=== PATIENT | female | born 1980 | race Caucasian/White ===

== ENCOUNTER → 2024-11-14 | Outpatient (CLI) | payer BC ==
--- NOTE | 2024-11-24 21:05 | CE ---
EVENT MONITOR STUDY: Event monitor. INDICATION: Rule out cardiac arrhythmia. The patient was monitored for 7 days. The baseline rhythm appeared to be sinus mechanism. PACs were not noted. PVC was noted, but it was in less than 1%. No evidence of atrial fibrillation or atrial flutter, and no significant sinus pause or sinus arrest. CONCLUSION: 1. Sinus rhythm as a baseline mechanism. 2. PACs were not noted during the study. 3. PVC was noted and it was rare. 4. No evidence of atrial fibrillation or atrial flutter. 5. No ventricular tachycardia noted. MMODL / IJN: [id number] / MTDD
== END | disposition home or self-care (01) ==
LOC: RADECHMAIN 07:55
PROVIDERS: ATTEND Family Medicine
DX: R00.2 Palpitations (principal); R00.0 Tachycardia, unspecified
CPT/HCPCS: 93270

== ENCOUNTER 2024-11-28 09:22 | Observation (INO) | payer BC, OTHER ==
[2024-11-28 09:49] LABS: Basophils % (A) 0 %; Eosinophils # (A) 0.3 k/uL (0-0.7); Eosinophils % (A) 2 %; HCT 43.3 % (34.0-46.0); HGB 13.9 gm/dL (11.4-16.0); Lymphocytes # (A) 2.6 k/uL (1.0-4.8); Lymphocytes % (A) 25 %; MCH 26.7 pg (25.0-35.0); MCHC 32.1 g/dL (31.0-37.0); MCV 83.1 fL (80.0-100.0); Mean Platelet Volume 7.9; Monocytes # (A) 0.3 k/uL (0-1.0); Monocytes % (A) 3 %; Neutrophils # (A) 7.2 k/uL (1.3-7.7); Neutrophils % (A) 69 %; Platelet Count 354 k/uL (150-450); RBC 5.21 m/uL (3.80-5.40); RDW 14.1 % (11.5-15.5); WBC 10.4 k/uL (3.8-10.6)
[2024-11-28 09:57] LABS: INR 0.9 (<1.2); Partial Thromboplastin Time 24.4 sec (22.0-30.0); Prothrombin Time 10.5 sec (10.0-12.5)
[2024-11-28 10:01] LABS: ALT 18 U/L (4-34); AST 19 U/L (14-36); African American GFR (CKD) >90 (>60 ml/min/1.73 sqM); Albumin 4.2 g/dL (3.5-5.0); Alkaline Phosphatase 103 U/L (38-126); Anion Gap 11 mmol/L; Blood Urea Nitrogen 19 mg/dL (7-17); Calcium 9.1 mg/dL (8.4-10.2); Carbon Dioxide 22 mmol/L (22-30); Chloride 107 mmol/L (98-107); Glucose 113 mg/dL (74-99); Magnesium 1.8 mg/dL (1.6-2.3); Non-African American GFR(CKD) >90 (>60 ml/min/1.73 sqM); Potassium 4.4 mmol/L (3.5-5.1); Sodium 140 mmol/L (137-145); Total Bilirubin 0.4 mg/dL (0.2-1.3); Total Protein 7.3 g/dL (6.3-8.2)
--- NOTE | 2024-11-28 10:07 | XR ---
EXAMINATION TYPE: XR chest 2V DATE OF EXAM: 11/28/2024 9:56 AM COMPARISON: None. CLINICAL INDICATION: Female, 44 years old with history of dysrhythmia, TECHNIQUE: Frontal and lateral views of the chest are obtained. FINDINGS: There is no focal air space opacity, pleural effusion, or pneumothorax seen. The cardiac silhouette size is within normal limits. Overlying EKG leads are seen. The osseous structures are in tact. IMPRESSION: No acute process. [facility], , 11/28/2024 10:05 AM
--- NOTE | 2024-11-28 10:15 | ED ---
Arrhythmia/Palpitations HPI - General Chief Complaint: Arrhythmia/Palpitations Stated Complaint: elevated heartrate Time Seen by Provider: 11/28/24 10:16 Source: patient, RN notes reviewed, old records reviewed Mode of arrival: ambulatory Limitations: no limitations - History of Present Illness Initial Comments: 44-year-old female presented to the ER for evaluation of palpitations. She states this has been going on for the past couple of months and she has been evaluated outpatient. Patient recently wore a Holter monitor from [facility] to [facility] but states she has not received results of this yet. Patient states last night she was feeling a thumping sensation in her chest. She denies actual chest pain. Patient states she checked her Fitbit and it was found to be in atrial fibrillation with RVR heart rates ranging from 60s to 180s. She has no history of atrial fibrillation denies medications or blood thinner use. Patient reports associated shortness of breath and intermittent lightheadedness/dizziness. She denies home O2 use, peripheral edema, history of blood clots or other complaints. - Related Data Home Medications Medication Instructions Recorded Confirmed Cholecalciferol (Vitamin D3) 50 mcg PO DAILY 11/28/24 11/28/24 [Vitamin D3 (50 Mcg = 2000 Iu)] Escitalopram Oxalate [Lexapro] 10 mg PO DAILY 11/28/24 11/28/24 Levothyroxine Sodium [Synthroid] 25 mcg PO DAILY 11/28/24 11/28/24 Magnesium Glycinate 200 mg PO DAILY 11/28/24 11/28/24 Methylphenidate HCl [Concerta] 54 mg PO DAILY 11/28/24 11/28/24 Allergies Allergy/AdvReac Type Severity Reaction Status Date / Time Penicillins Allergy Rash/Hives Verified 11/28/24 10:40 Review of Systems ROS Statement: Those systems with pertinent positive or pertinent negative responses have been documented in the HPI. ROS Other: All systems not noted in ROS Statement are negative. Past Medical History Past Medical History: No Reported History History of Any Multi-Drug Resistant Organisms: None Reported Past Surgical History: Orthopedic Surgery Past Psychological History: Depression Smoking Status: Never smoker Past Alcohol Use History: None Reported Past Drug Use History: None Reported General Exam Limitations: no limitations General appearance: alert, in no apparent distress Respiratory exam: Present: normal lung sounds bilaterally. Absent: respiratory distress, wheezes, rales, rhonchi, stridor Cardiovascular Exam: Present: tachycardia, irregular rhythm, normal heart sounds Extremities exam: Present: normal inspection, full ROM, normal capillary refill. Absent: tenderness, pedal edema, joint swelling, calf tenderness Neurological exam: Present: alert, oriented X3, CN II-XII intact Skin exam: Present: warm, dry, intact, normal color. Absent: rash Course Vital Signs 11/28/24 11/28/24 11/28/24 09:26 10:16 11:04 Temperature 97.4 F L Pulse Rate 68 124 H 98 Respiratory 16 20 20 Rate Blood Pressure 115/71 113/66 O2 Sat by Pulse 100 99 Oximetry 11/28/24 12:30 Temperature Pulse Rate 99 Respiratory 18 Rate Blood Pressure 111/67 O2 Sat by Pulse 97 Oximetry - Reevaluation(s) Reevaluation #1: 11/28/24 11:[address] Stock for admission. EKG Findings - EKG Comments: EKG Findings:: EKG taken at 9: 34 showing atrial fibrillation with RVR. Ventricular rate 116, QRS duration 85, QT/QTc 282/351. Medical Decision Making - Medical Decision Making Was pt. sent in by a medical professional or institution (, PA, SPORTS INSTRUCTOR, urgent care, hospital, or retirement...) When possible be specific @ -No Did you speak to anyone other than the patient for history (EMS, parent, family, police, friend...)? What history was obtained from this source @ -No Did you review nursing and triage notes (agree or disagree)? Why? @ -I reviewed and agree with nursing and triage notes Were old charts reviewed (outside hosp., previous admission, EMS record, old EKG, old radiological studies, urgent care reports/EKG's, retirement records)? Report findings @ -No old charts were reviewed Differential Diagnosis (chest pain, altered mental status, abdominal pain women, abdominal pain men, vaginal bleeding, weakness, fever, dyspnea, syncope, headache, dizziness, GI bleed, back pain, seizure, CVA, palpatations, mental health, musculoskeletal)? @ -Differential Palpitations: Ventricular arrhythmias, atrial arrhythmias, myocardial infarction, anemia, thyrotoxicosis, electrolyte imbalance, hypokalemia, pulmonary embolism, pulmonary disease, drugs, alcohol, anxiety, stress.... This is not meant to be an all-inclusive list. EKG interpreted by me (3pts min.). @ -As above X-rays interpreted by me (1pt min.). @ -CXR interpreted me negative for acute cardiopulmonary process. CT interpreted by me (1pt min.). @ -None done U/S interpreted by me (1pt. min.). @ -None done What testing was considered but not performed or refused? (CT, X-rays, U/S, labs)? Why? @ -None What meds were considered but not given or refused? Why? @ -None Did you discuss the management of the patient with other professionals (professionals i.e. , PA, SPORTS INSTRUCTOR, lab, RT, psych nurse, social science manager, family medicine chair, teacher, supervisor dog license officer, behavioral health case manager)? Give summary @ -Yes, case discussed with Dr. Stock for admission. Was smoking cessation discussed for >3mins.? @ -No Was critical care preformed (if so, how long)? @ -Yes, 31 minutes Were there social determinants of health that impacted care today? How? (Homelessness, low income, unemployed, alcoholism, drug addiction, transportati on, low edu. Level, literacy, decrease access to med. care, [facility], rehab)? @ -No Was there de-escalation of care discussed even if they declined (Discuss DNR or withdrawal of care, Hospice)? DNR status @ -No What co-morbidities impacted this encounter? (DM, HTN, Smoking, COPD, CAD, Cancer, CVA, ARF, Chemo, Hep., AIDS, mental health diagnosis, sleep apnea, morbid obesity)? @ -Hypothyroid Was patient admitted / discharged? Hospital course, mention meds given and route, prescriptions, significant lab abnormalities, going to OR and other pertinent info. @ -Admitted. 44-year-old female presented to the ER for evaluation of palpitations. Upon rooming, history and physical exam completed. Patient is tachycardic ranging from 120s to 140s vitals otherwise stable. Patient no signs acute distress nontoxic-appearing. EKG showing atrial fibrillation with rapid ventricular response ventricular rate 116 bm. Laboratory studies obtained including cardiac workup. Troponin less than 0.012. D-dimer 0.42. TSH 4.710. Free T4 pending at time of admission. Chest x-ray negative. Given new onset atrial fibrillation patient started on low-dose heparin and Cardizem at 5 mg/h. Admission considered and discussed with Dr. Stock for treatment of new onset atrial fibrillation and cardiology consultation. Upon reevaluation, patient resting comfortably on stretcher no signs of acute distress. Heart rates ranging from 90s to 110s. Vital stable. Patient agreeable for admission. Case discussed with the attending of Dr. Sanchez. Undiagnosed new problem with uncertain prognosis? @ -No Drug Therapy requiring intensive monitoring for toxicity (Heparin, Nitro, Insulin, Cardizem)? @ -Yes, heparin and Cardizem Were any procedures done? @ -No Diagnosis/symptom? @ -New onset atrial fibrillation Acute, or Chronic, or Acute on Chronic? @ -Acute Uncomplicated (without systemic symptoms) or Complicated (systemic symptoms)? @ -Complicated Side effects of treatment? @ -No Exacerbation, Progression, or Severe Exacerbation? @ -No Poses a threat to life or bodily function? How? (Chest pain, USA, AR, pneumonia, PE, COPD, DKA, ARF, appy, cholecystitis, CVA, Diverticulitis, Homicidal, Suicidal, threat to staff... and all critical care pts) @ -Yes, atrial fibrillation with rapid ventricular response can lead to blood clot formation. Blood clots can cause strokes and/or pulmonary embolisms which can be life-threatening. - Lab Data Result diagrams: 11/28/24 09:44 11/28/24 09:44 Lab Results 11/28/24 11/28/24 11/28/24 Range/Units 09:44 09:44 09:44 WBC 10.4 (3.8-10.6) k/uL RBC 5.21 (3.80-5.40) m/uL Hgb 13.9 (11.4-16.0) gm/dL Hct 43.3 (34.0-46.0) % MCV 83.1 (80.0-100.0) fL MCH 26.7 (25.0-35.0) pg MCHC 32.1 (31.0-37.0) g/dL RDW 14.1 (11.5-15.5) % Plt Count 354 (150-450) k/uL MPV 7.9 Neutrophils % 69 % Lymphocytes % 25 % Monocytes % 3 % Eosinophils % 2 % Basophils % 0 % Neutrophils # 7.2 (1.3-7.7) k/uL Lymphocytes # 2.6 (1.0-4.8) k/uL Monocytes # 0.3 (0-1.0) k/uL Eosinophils # 0.3 (0-0.7) k/uL Basophils # 0.0 (0-0.2) k/uL PT 10.5 (10.0-12.5) sec INR 0.9 (<1.2) APTT 24.4 (22.0-30.0) sec D-Dimer (<0.60) mg/L FEU Sodium 140 (137-145) mmol/L Potassium 4.4 (3.5-5.1) mmol/L Chloride 107 (98-107) mmol/L Carbon Dioxide 22 (22-30) mmol/L Anion Gap 11 mmol/L BUN 19 H (7-17) mg/dL Creatinine 0.65 (0.52-1.04) mg/dL Est GFR (CKD-EPI)AfAm >90 (>60 ml/min/1.73 sqM) Est GFR (CKD-EPI)NonAf >90 (>60 ml/min/1.73 sqM) Glucose 113 H (74-99) mg/dL Calcium 9.1 (8.4-10.2) mg/dL Magnesium 1.8 (1.6-2.3) mg/dL Total Bilirubin 0.4 (0.2-1.3) mg/dL AST 19 (14-36) U/L ALT 18 (4-34) U/L Alkaline Phosphatase 103 (38-126) U/L Troponin I (0.000-0.034) ng/mL Total Protein 7.3 (6.3-8.2) g/dL Albumin 4.2 (3.5-5.0) g/dL TSH (0.465-4.680) mIU/L Free T4 (0.78-2.19) ng/dL 11/28/24 11/28/24 11/28/24 Range/Units 09:44 09:44 09:44 WBC (3.8-10.6) k/uL RBC (3.80-5.40) m/uL Hgb (11.4-16.0) gm/dL Hct (34.0-46.0) % MCV (80.0-100.0) fL MCH (25.0-35.0) pg MCHC (31.0-37.0) g/dL RDW (11.5-15.5) % Plt Count (150-450) k/uL MPV Neutrophils % % Lymphocytes % % Monocytes % % Eosinophils % % Basophils % % Neutrophils # (1.3-7.7) k/uL Lymphocytes # (1.0-4.8) k/uL Monocytes # (0-1.0) k/uL Eosinophils # (0-0.7) k/uL Basophils # (0-0.2) k/uL PT (10.0-12.5) sec INR (<1.2) APTT (22.0-30.0) sec D-Dimer 0.42 (<0.60) mg/L FEU Sodium (137-145) mmol/L Potassium (3.5-5.1) mmol/L Chloride (98-107) mmol/L Carbon Dioxide (22-30) mmol/L Anion Gap mmol/L BUN (7-17) mg/dL Creatinine (0.52-1.04) mg/dL Est GFR (CKD-EPI)AfAm (>60 ml/min/1.73 sqM) Est GFR (CKD-EPI)NonAf (>60 ml/min/1.73 sqM) Glucose (74-99) mg/dL Calcium (8.4-10.2) mg/dL Magnesium (1.6-2.3) mg/dL Total Bilirubin (0.2-1.3) mg/dL AST (14-36) U/L ALT (4-34) U/L Alkaline Phosphatase (38-126) U/L Troponin I <0.012 (0.000-0.034) ng/mL Total Protein (6.3-8.2) g/dL Albumin (3.5-5.0) g/dL TSH 4.710 H (0.465-4.680) mIU/L Free T4 0.72 L (0.78-2.19) ng/dL - Radiology Data Radiology results: report reviewed, image reviewed Disposition Clinical Impression: New onset atrial fibrillation Disposition: ADMITTED IP TO THIS [facility] Condition: Stable Time of Disposition: 11:07
[2024-11-28] MEDS: SODIUM CHLORIDE 0.9% 1,000 ML IV STA (10:23)
[2024-11-28] MEDS: DILTIAZEM 125 MG in SODIUM CHLORIDE 0.9% 100 ML IV SCH (10:26)
[2024-11-28] MEDS ORDERED: ACETAMINOPHEN TAB 325 MG TAB PO PRN (11:06)
[2024-11-28] MEDS ORDERED: NALOXONE 0.4 MG/ML 1 ML VIAL IV PRN (11:06)
[2024-11-28] MEDS ORDERED: ONDANSETRON 4 MG/2 ML VIAL IVP PRN (11:06)
[2024-11-28] MEDS: HEPARIN SODIUM 1,000 UN/ML (10ML VL) IV ONE (11:11)
[2024-11-28] MEDS: HEPARIN SOD,PORK IN 0.45% NACL 25,000 UNIT in 0.45% NACL 1 250ML.BAG IV SCH (11:12)
[2024-11-28] MEDS: SODIUM CHLORIDE 0.9% 1,000 ML IV SCH (11:24)
[2024-11-28 13:35] LABS: T4, Free (Free Thyroxine) 0.72 ng/dL (0.78-2.19)
[2024-11-28] MEDS: HEPARIN SODIUM 1,000 UN/ML (10ML VL) IV PRN (18:00)
[2024-11-29] MEDS: HEPARIN SODIUM 1,000 UN/ML (10ML VL) IV ONE (01:18)
[2024-11-29] MEDS: LEVOTHYROXINE 25 MCG TAB PO SCH (06:34)
[2024-11-29 08:09] LABS: Basophils % (A) 0 %; Eosinophils # (A) 0.2 k/uL (0-0.7); Eosinophils % (A) 2 %; HCT 37.5 % (34.0-46.0); HGB 12.1 gm/dL (11.4-16.0); Hypochromasia Slight; Lymphocytes # (A) 3.2 k/uL (1.0-4.8); Lymphocytes % (A) 32 %; MCH 27.5 pg (25.0-35.0); MCHC 32.2 g/dL (31.0-37.0); MCV 85.6 fL (80.0-100.0); Mean Platelet Volume 8.2; Monocytes # (A) 0.5 k/uL (0-1.0); Monocytes % (A) 5 %; Neutrophils # (A) 5.9 k/uL (1.3-7.7); Neutrophils % (A) 60 %; Platelet Count 244 k/uL (150-450); RBC 4.38 m/uL (3.80-5.40); RDW 14.2 % (11.5-15.5); WBC 9.8 k/uL (3.8-10.6)
[2024-11-29 08:16] LABS: Partial Thromboplastin Time 47.9 sec (22.0-30.0); Prothrombin Time 10.8 sec (10.0-12.5)
[2024-11-29] MEDS: DILTIAZEM CD 120 MG CAP.ER.24H PO SCH (09:00)
[2024-11-29] MEDS: CHOLECALCIFEROL 25 MCG (1000 IU) TABLET PO SCH (09:00)
[2024-11-29] MEDS: ASPIRIN 325 MG TAB PO SCH (09:00)
[2024-11-29] MEDS: LEVOTHYROXINE 25 MCG TAB PO ONE (09:00)
[2024-11-29] MEDS: ESCITALOPRAM 10 MG TAB PO SCH (09:00)
[2024-11-29] MEDS: MAGNESIUM OXIDE 400 MG TAB PO SCH (09:00)
--- NOTE | 2024-11-29 09:41 | P.CRDCN ---
History of Present Illness History of present illness: HISTORY OF PRESENT ILLNESS: This is a 44 year old female with a past medical history significant for hypothyroidism and obesity. 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 We have been asked to see the patient in consultation for new onset atrial fibrillation. Patient examined at the bedside. Patient states 2 nights ago she woke up having palpitations and felt her heart fluttering. She states that her Fitbit watch read out as atrial fibrillation. She also reports feeling short of breath and lightheaded at that time. She states this happened 1 time also in August. She states at that time she went to her PCP office and had an EKG completed which was normal at that time. Patient recently wore a heart monitor revealing sinus mechanism with no evidence of atrial flutter or fibrillation. Patient does report that she snores at night but has never been evaluated for sleep apnea. She denies any history of hypertension, hyperlipidemia, or diabetes. DIAGNOSTICS: - EKG reveals A-fib with RVR - Chest xray negative for acute process - Laboratory data: WBC 9.8. Hemoglobin 12.1. Platelet count 244. D-dimer 0.42. Sodium 140. Potassium 4.4. BUN 19. Creatinine 0.65. Troponin negative x 1. TSH 4.710. Free T4 0.72. - Current home cardiac medications include none REVIEW OF SYSTEMS: At the time of my exam: CONSTITUTIONAL: Denies fever or chills. HEENT: Denies blurred vision, vision changes, or eye pain. Denies hemoptysis CARDIOVASCULAR: Denies chest pain. Denies orthopnea. Denies PND. Denies palpitations RESPIRATORY: Denies shortness of breath. GASTROINTESTINAL: Denies abdominal pain. Denies nausea or vomiting. HEMATOLOGIC: Denies bleeding disorders. GENITOURINARY: Denies any blood in urine. SKIN: Denies pruitis. Denies rash. PHYSICAL EXAM: VITAL SIGNS: Reviewed. GENERAL: Well-developed in no acute distress. HEENT: Head is normocephalic. Pupils are equal, round. Sclerae anicteric. Mucous membranes of the mouth are moist. Neck supple. No JVD or thyromegaly LUNGS: Respirations even and unlabored. Lungs essentially clear to auscultation bilaterally. HEART: Regular rate and rhythm. S1 and S2 heard. ABDOMEN: Soft. Nondistended. Nontender. EXTREMITIES: Normal range of motion. No clubbing or cyanosis. Peripheral pulses intact. No lower extremity edema NEUROLOGIC: Awake and alert. Oriented x 3. ASSESSMENT: New onset atrial fibrillation with RVR, currently maintaining sinus mechanism Hypothyroidism Morbid obesity: BMI 56.7 PLAN: Obtain 2D echo to assess cardiac structure and function Discontinue IV heparin and IV Cardizem Patient with [id number] score of 1 (female). Collation not indicated. Will begin aspirin 325 mg daily. Patient instructed if she begins to have GI symptoms may decrease to 81 mg daily Add Cardizem CD 120 mg daily Discussed possibility of discontinuing Concerta. However patient states that she does require this medication daily. However she will talk to her psychiatrist about alternatives. Recommend outpatient sleep study to rule out obstructive sleep apnea Patient may be discharged home today after echo was completed from a cardiac standpoint Nurse practitioner note has been reviewed by physician. Signing provider agrees with the documented findings, assessment, and plan of care documented by LANDSCAPE PHOTOGRAPHER as a scribe. Past Medical History Past Medical History: No Reported History History of Any Multi-Drug Resistant Organisms: None Reported Past Surgical History: Orthopedic Surgery Past Psychological History: Depression Smoking Status: Never smoker Past Alcohol Use History: None Reported Past Drug Use History: None Reported - Past Family History Mother Additional Family Medical History / Comment(s): maternal grandma "heart issues" and emphysema Medications and Allergies Home Medications Medication Instructions Recorded Confirmed Type Cholecalciferol (Vitamin D3) 50 mcg PO DAILY 11/28/24 11/28/24 History [Vitamin D3 (50 Mcg = 2000 Iu)] Escitalopram Oxalate [Lexapro] 10 mg PO DAILY 11/28/24 11/28/24 History Levothyroxine Sodium [Synthroid] 25 mcg PO DAILY 11/28/24 11/28/24 History Magnesium Glycinate 200 mg PO DAILY 11/28/24 11/28/24 History Methylphenidate HCl [Concerta] 54 mg PO DAILY 11/28/24 11/28/24 History Allergies Allergy/AdvReac Type Severity Reaction Status Date / Time Penicillins Allergy Rash/Hives Verified 11/28/24 10:40 Physical Exam Vitals: Vital Signs Temp Pulse Pulse Resp BP BP Pulse Ox 11/29/24 04:00 98.0 F 82 18 116/78 96 11/29/24 02:00 86 18 11/29/24 00:00 98.5 F 86 18 116/74 97 11/28/24 20:00 97.6 F 88 18 99/66 98 11/28/24 18:04 87 17 106/71 96 11/28/24 17:20 90 18 111/64 97 11/28/24 16:15 112 H 18 118/77 97 11/28/24 15:00 98 18 113/68 96 11/28/24 14:00 105 H 18 116/60 98 11/28/24 13:30 112 H 18 114/75 97 11/28/24 12:30 99 18 111/67 97 11/28/24 11:04 98 20 113/66 99 11/28/24 10:16 124 H 20 11/28/24 09:26 97.4 F L 68 16 115/71 100 Intake and Output 11/28/24 11/29/24 11/29/24 22:59 06:59 14:59 Intake Total 667.5 249.415 Balance 667.5 249.415 Intake: Intake, IV Titration 67.5 249.415 Amount Diltiazem 125 mg In 90.083 Sodium Chloride 0.9% 100 ml @ 5 MG/HR 5 mls/hr IV .Q24H [facility] Rx#:[id number] Heparin Sod,Pork in 0.45% 67.5 159.332 NaCl 25,000 unit In 0.45 % NaCl 1 250ml.bag @ 7. 112 UNITS/KG/HR 10 mls/hr IV .Q24H [facility] Rx#: [id number] Oral 600 Other: Voiding Method Toilet Toilet # Voids 1 1 Weight 140.614 kg 140.7 kg Results 11/29/24 06:34 11/28/24 09:44 Cardiac Enzymes 11/28/24 11/28/24 Range/Units 09:44 09:44 AST 19 (14-36) U/L Troponin I <0.012 (0.000-0.034) ng/mL Coagulation 11/28/24 11/28/24 11/28/24 Range/Units 09:44 16:34 23:51 PT 10.5 (10.0-12.5) sec APTT 24.4 25.1 31.0 H (22.0-30.0) sec CBC 11/28/24 11/29/24 Range/Units 09:44 06:34 WBC 10.4 9.8 (3.8-10.6) k/uL RBC 5.21 4.38 (3.80-5.40) m/uL Hgb 13.9 12.1 (11.4-16.0) gm/dL Hct 43.3 37.5 (34.0-46.0) % Plt Count 354 244 (150-450) k/uL Comprehensive Metabolic Panel 11/28/24 Range/Units 09:44 Sodium 140 (137-145) mmol/L Potassium 4.4 (3.5-5.1) mmol/L Chloride 107 (98-107) mmol/L Carbon Dioxide 22 (22-30) mmol/L BUN 19 H (7-17) mg/dL Creatinine 0.65 (0.52-1.04) mg/dL Glucose 113 H (74-99) mg/dL Calcium 9.1 (8.4-10.2) mg/dL AST 19 (14-36) U/L ALT 18 (4-34) U/L Alkaline Phosphatase 103 (38-126) U/L Total Protein 7.3 (6.3-8.2) g/dL Albumin 4.2 (3.5-5.0) g/dL Current Medications Generic Name Dose Route Start Last Admin Trade Name Freq PRN Reason Stop Dose Admin Acetaminophen 650 mg 11/28/24 11:06 Acetaminophen Tab 325 Mg Tab PO Q6HR PRN Mild Pain or Fever > 100.5 Cholecalciferol 50 mcg 11/29/24 09:00 Cholecalciferol 25 Mcg (1000 Iu) Tablet PO DAILY [facility] Escitalopram Oxalate 10 mg 11/29/24 09:00 Escitalopram 10 Mg Tab PO DAILY [facility] Heparin Sodium (Porcine) 0 unit 11/28/24 10:57 11/28/24 18:00 Heparin Sodium 1,000 Un/Ml (10ml Vl) IV 4,000 unit PER PROTOCOL PRN Administration Low PTT Protocol Diltiazem HCl 125 mg/ Sodium 125 mls @ 5 mls/hr 11/28/24 10:15 11/29/24 04:27 Chloride IV 5 mg/hr .Q24H [facility] 5 mls/hr Administration 5 MG/HR Heparin Sodium/Sodium Chloride 250 mls @ 10 mls/hr 11/28/24 11:00 11/29/24 04:28 25,000 unit/ Sodium Chloride IV 12.112 units/kg/hr .Q24H [facility] 17.031 mls/hr Administration Protocol 7.112 UNITS/KG/HR Sodium Chloride 1,000 mls @ 75 mls/hr 11/28/24 11:15 11/29/24 06:36 Saline 0.9% IV 75 mls/hr .[id number] [facility] Administration Levothyroxine Sodium 50 mcg 11/30/24 06:00 Levothyroxine 25 Mcg Tab PO DAILY@0600 [facility] Levothyroxine Sodium 25 mcg 11/29/24 08:12 Levothyroxine 25 Mcg Tab PO 11/29/24 08:13 ONCE ONE Magnesium Oxide 400 mg 11/29/24 09:00 Magnesium Oxide 400 Mg Tab PO DAILY [facility] Naloxone HCl 0.2 mg 11/28/24 11:06 Naloxone 0.4 Mg/Ml 1 Ml Vial IV Q2M PRN Opioid Reversal Ondansetron HCl 4 mg 11/28/24 11:06 Ondansetron 4 Mg/2 Ml Vial IVP Q8HR PRN Nausea And Vomiting Intake and Output 11/28/24 11/29/24 11/29/24 22:59 06:59 14:59 Intake Total 667.5 249.415 Balance 667.5 249.415 Intake: Intake, IV Titration 67.5 249.415 Amount Diltiazem 125 mg In 90.083 Sodium Chloride 0.9% 100 ml @ 5 MG/HR 5 mls/hr IV .Q24H [facility] Rx#:[id number] Heparin Sod,Pork in 0.45% 67.5 159.332 NaCl 25,000 unit In 0.45 % NaCl 1 250ml.bag @ 7. 112 UNITS/KG/HR 10 mls/hr IV .Q24H [facility] Rx#: [id number] Oral 600 Other: Voiding Method Toilet Toilet # Voids 1 1 Weight 140.614 kg 140.7 kg 11/29/24 06:34 11/28/24 09:44
[2024-11-29 09:52] VITALS: RESP 17; TEMP 97.9
--- NOTE | 2024-11-29 12:01 | CA ---
Transthoracic Echo Report Name: Ramonita Nguyễn Age: 44 Gender: F : 1980 Exam Date: 11/29/2024 10:14 Exam Location: [facility] Ht (in): 62 Wt (lb): 310 Ordering Physician: Mily Rosenbaum Attending/Referring Phys: [id number], Robi Ux Specialist Lisseth Jimenez, JERRY Procedure CPT: Indications: LV function, new afib Cardiac Hx: Technical Quality: Fair, Technically difficult study Contrast 1: Definity Total Dose (mL): 2 Contrast 2: Total Dose (mL): MEASUREMENTS (Male / Female) Normal Values 2D ECHO LV Diastolic Diameter PLAX 3.9 cm 4.2 - 5.9 / 3.9 - 5.3 cm LV Systolic Diameter PLAX 1.9 cm IVS Diastolic Thickness 1.2 cm 0.6 - 1.0 / 0.6 - 0.9 cm LVPW Diastolic Thickness 1.2 cm 0.6 - 1.0 / 0.6 - 0.9 cm LV Relative Wall Thickness 0.6 RV Internal Dim ED PLAX 2.4 cm LA Systolic Diameter LX 4.4 cm 3.0 - 4.0 / 2.7 - 3.8 cm LA Volume 31.1 cm??? 18 - 58 / 22 - 52 cm??? LA Volume Index 12.1 cm???/m??? 16 - 28 cm???/m??? M-MODE Aortic Root Diameter MM 2.5 cm LA Systolic Diameter MM 3.9 cm LA Ao Ratio MM 1.5 AV Cusp Separation MM 1.7 cm DOPPLER MV Area PHT 3.5 cm??? Mitral E Point Velocity 79.2 cm/s Mitral A Point Velocity 74.8 cm/s Mitral E to A Ratio 1.1 MV Deceleration Time 215.8 ms TR Peak Velocity 213.6 cm/s TR Peak Gradient 18.2 mmHg Right Ventricular Systolic Press 21.8 mmHg FINDINGS Left Ventricle Left ventricular ejection fraction is estimated at 55-60 %. Mildly increased septal wall thickness. Mildly increased posterior wall thickness. Normal left ventricular systolic function with no obvious regional wall motion abnormalities. Left ventricular cavity size normal. Right Ventricle Mild right ventricular dilatation. Right ventricular systolic pressure within normal limits. Right Atrium Mild right atrial dilatation. Left Atrium Mild left atrial dilatation. Mitral Valve Structurally normal mitral valve. Trace mitral regurgitation. No mitral stenosis. Aortic Valve No aortic valve stenosis or regurgitation. Trileaflet aortic valve. Tricuspid Valve Structurally normal tricuspid valve. Mild tricuspid regurgitation. No tricuspid stenosis. Pulmonic Valve Structurally normal pulmonic valve. No pulmonic stenosis. Trace pulmonic regurgitation. Pericardium No pericardial or pleural effusion. Aorta Normal size aortic root and proximal ascending aorta. CONCLUSIONS LVEF 55% Mild concentric LVH No obvious regional wall motion abnormality Mild biatrial dilatation Mild RV dilatation. RVSP 22 mmHg No significant valvular dysfunction appreciated Previewed by: Dr Alan Novak (Electronically Signed) Final Date: 29 November 2024 12:00
[2024-11-29 12:21] VITALS: BP 116/75; PULSE 78
[2024-11-30] MEDS ORDERED: LEVOTHYROXINE 50 MCG TAB PO SCH (06:00)
--- NOTE | 2024-12-01 12:21 | P.HPIM ---
History of Present Illness H&P Date: 11/29/24 Chief Complaint: Palpitations, new onset A-fib per Fitbit History and Physical and Discharge summary This is a 44-year-old female with past medical history of morbid obesity, depression and multiple other medical issues presented to the ER with complaints of palpitations accompanied by shortness of breath, intermittent dizziness, lightheadedness. Reports her Fitbit read atrial fibrillation with RVR. Patient just completed [facility] and has not received the results yet. EKG reported atrial fibrillation with fast ventricular rate. Troponin negative x 1, D-dimer normal, 0.42, TSH elevated 4.710. Chest x-ray reported nonacute. heparin and Cardizem drips initiated in the ER. Electrolytes and renal function within normal limits. 2D echo ordered. Evaluated by cardiology. IV heparin and Cardizem discontinued, transitioned to Cardizem CD and aspirin 325. Currently denies chest pain, palpitations or shortness of breath. Review of Systems ROS Statement: Those systems with pertinent positive or pertinent negative responses have been documented in the HPI. ROS Other: All systems not noted in ROS Statement are negative. Past Medical History Past Medical History: No Reported History History of Any Multi-Drug Resistant Organisms: None Reported Past Surgical History: Orthopedic Surgery Past Psychological History: Depression Smoking Status: Never smoker Past Alcohol Use History: None Reported Past Drug Use History: None Reported - Past Family History Mother Additional Family Medical History / Comment(s): maternal grandma "heart issues" and emphysema Medications and Allergies Home Medications Medication Instructions Recorded Confirmed Type Cholecalciferol (Vitamin D3) 50 mcg PO DAILY 11/28/24 11/28/24 History [Vitamin D3 (50 Mcg = 2000 Iu)] Escitalopram Oxalate [Lexapro] 10 mg PO DAILY 11/28/24 11/28/24 History Magnesium Glycinate 200 mg PO DAILY 11/28/24 11/28/24 History Methylphenidate HCl [Concerta] 54 mg PO DAILY 11/28/24 11/28/24 History Aspirin EC [Ecotrin] 325 mg PO DAILY #30 tab 11/29/24 Rx Diltiazem Cd [Cardizem CD] 120 mg PO DAILY #30 cap 11/29/24 Rx Famotidine [Pepcid] 20 mg PO DAILY #30 tablet 01/08/25 Rx Levothyroxine Sodium [Synthroid] 50 mcg PO DAILY@0600 #30 tab 11/29/24 Rx Allergies Allergy/AdvReac Type Severity Reaction Status Date / Time Penicillins Allergy Rash/Hives Verified 11/28/24 10:40 Physical Exam Vitals: Vital Signs Temp Pulse Resp BP Pulse Ox 11/28/24 12:30 99 18 111/67 97 11/28/24 11:04 98 20 113/66 99 11/28/24 10:16 124 H 20 11/28/24 09:26 97.4 F L 68 16 115/71 100 Intake and Output 11/27/24 11/28/24 11/28/24 22:59 06:59 14:59 Other: Weight 140.614 kg PHYSICAL EXAM: VITAL SIGNS: [Reviewed] GENERAL: Alert and orient x 3, no acute distress sitting up in stretcher HEENT: Normocephalic, atraumatic ,conjunctivae normal. eyes normal. NECK: Supple, no JVD. No thyroid enlargement. No LNs. CARDIOVASCULAR: S1, S2. irregular, no murmur RESPIRATION: Breath sounds diminished in the bases. No rhonchi or crackles. No bronchial breathing. ABDOMEN: Soft, nontender . No guarding. no masses palpable. No ascites, No hepatosplenomegaly.Bowel sounds heard. LEGS: No edema. no clubbing or cyanosis. No calf tenderness. NERVOUS SYSTEM: Cranial N 2-12 grossly normal. No focal deficits. Strength and sensation grossly intact. Skin: Warm and dry, no rash Results CBC & Chem 7: 11/29/24 06:34 11/28/24 09:44 Labs: Abnormal Lab Results - Last 24 Hours (Table) 11/28/24 11/28/24 Range/Units 09:44 09:44 BUN 19 H (7-17) mg/dL Glucose 113 H (74-99) mg/dL TSH 4.710 H (0.465-4.680) mIU/L Assessment and Plan Assessment: Palpitations, new onset atrial fibrillation with RVR, currently sinus rhythm Hypothyroidism, supratherapeutic, TSH 4.710 /Free T40.72 ,Dose increased, repeat levels outpatient Morbid obesity, BMI 57 Depression Plan: Continue on current medication resume ,monitoring and symptomatic treatment. Evaluated by cardiology, 2D echo pending. Patient has been cleared for discharge by cardiology-they will discuss echo results with patient outpatient, instructed patient she may decrease aspirin to 81 mg daily if she develops GI symptoms,recommended for her to check with her psychiatrist regarding alternatives to Concerta and outpatient sleep study to rule out obstructive sleep apnea. Patient will be discharged home today in a stable condition with guarded prognosis. Follow-up with PCP in 1 week Discharge Medication List Cholecalciferol (Vitamin D3) [Vitamin D3 (50 Mcg = 2000 Iu)] 50 mcg PO DAILY 11/28/24 [History] Escitalopram Oxalate [Lexapro] 10 mg PO DAILY 11/28/24 [History] Magnesium Glycinate 200 mg PO DAILY 11/28/24 [History] Methylphenidate HCl [Concerta] 54 mg PO DAILY 11/28/24 [History] Aspirin EC [Ecotrin] 325 mg PO DAILY #30 tab 11/29/24 [Rx] Diltiazem Cd [Cardizem CD] 120 mg PO DAILY #30 cap 11/29/24 [Rx] Famotidine [Pepcid] 20 mg PO DAILY #30 tablet 11/29/24 [Rx] Levothyroxine Sodium [Synthroid] 50 mcg PO DAILY@0600 #30 tab 11/29/24 [Rx] The impression and plan of care has been dictated as directed. : I performed a history and examination of this patient, discussed the same with the dictator. I agree with the dictator's note ,documented as a scribe. Any additional findings or plans will be noted.
== END 2024-11-29 12:41 | disposition home or self-care (01) ==
LOC: EC 09:22 → 3SCARD 12:40
PROVIDERS: ADMIT Family Medicine; ATTEND Family Medicine
DX: I48.91 Unspecified atrial fibrillation (principal); E03.9 Hypothyroidism, unspecified; R00.0 Tachycardia, unspecified; E66.01 Morbid (severe) obesity due to excess calories; Z68.43 Body mass index [BMI] 50.0-59.9, adult; F32.A Depression, unspecified; R06.83 Snoring; Z79.890 Hormone replacement therapy; Z79.899 Other long term (current) drug therapy; Z88.0 Allergy status to penicillin
CPT/HCPCS: 96376 ×3; 96366 ×3; 96365; 99291; 36415; 93005; 93306; 85379; 84439; 80053; 84443; 83735; 84484; 85025 ×2; 85610 ×2; 85730 ×2; 71046; G0378 ×2; Q9957; J1644 ×4

== ENCOUNTER 2025-02-11 19:47 | Outpatient (CLI) | payer OTHER ==
--- NOTE | 2025-02-15 13:56 | P.PCN ---
Description of Procedure: POLYSOMNOGRAPHY REPORT PROCEDURE(S)/DATE(S): Polysomnography 02/11/2025 CLINICAL: Patient has been seen in the sleep center for evaluation of obstructive sleep apnea-hypopnea syndrome. Please see my consultation. Sleep study has been done for evaluation of patient breathing during the sleep. PROCEDURE: The standard montage for clinical polysomnography included the electroencephalogram, the electrooculogram, the mentalis surface electromyography and Lead II cardiography. The respiratory battery consisted of measurements of nasal/buccal air flow, pressure transducer measurements from nose, thoracic and/or abdominal effort and intercostal surface electromyography. Video monitoring has been done to check for any parasomnia events. Nocturnal oxyhemoglobin saturations were obtained by finger oximetry. Step-martinez titration with positive airway pressure was utilized to control the respiratory events, if necessary. RESULTS: During the diagnostic sleep study sleep efficiency was slightly decreased to 81.8%. Latency to sleep onset was significantly prolonged to 54.0 min. Sleep architecture showed stage NI was normal 8.0%, Delta sleep was absent 0%, REM sleep was short 14.8%. Respiratory channel showed 0 obstructive apneas, 0 mixed apneas, 0 central apneas, 83 hypopneas with lowest oxygen level 74%. Total apnea hypopnea index was 16.2. Heart rate was in the range between 55 and 99, average 71. EMG showed 13.5 periodic limb movements per hour. IMPRESSIONS: 1. Moderate obstructive sleep apnea hypopnea syndrome. 2. Mild periodic limb movements have been documented. Please see other impressions from consultation PLAN: 1. The patient will have PAP titration for correction of respiratory abnormalities during the sleep. 2. Losing weight program. 3. Sleep hygiene with regular time in bed for at least 7-1/2 hours. 4. No driving if feeling sleepiness. 5. Please check iron profile including ferritin level. Low level of iron may increase the risk for periodic limb movements. Thank you very much for allowing me to participate in the management of your patient. Sincerely, Cristobal Nur MD, PhD, FAASM. Diplomat of [place] [employer], Sleep Medicine Board by [place] [employer] Senior Service Technician of [facility] [place] cc: Ramy Stock DO
== END 2025-02-12 06:30 | disposition home or self-care (01) ==
LOC: 3 N SLEEP 19:47
PROVIDERS: ATTEND Internal Medicine
DX: G47.33 Obstructive sleep apnea (adult) (pediatric) (principal); G47.61 Periodic limb movement disorder; Z88.0 Allergy status to penicillin
CPT/HCPCS: 95810

== ENCOUNTER 2025-05-20 20:01 | Outpatient (CLI) | payer OTHER ==
--- NOTE | 2025-05-23 16:07 | P.PCN ---
Description of Procedure: CLINICAL: Titration with positive air pressure has been done for correction of respiratory abnormalities during sleep. DESCRIPTION OF PROCEDURE: The standard montage for clinical polysomnography included the electroencephalogram, the electrocardiogram, the mentalis surface electromyography and Lead II cardiography. The respiratory battery consisted of measurements of nasal /buccal air flow, pressure transducer measurements from the nose, thoracic and /or abdominal effort and intercostal surface electromyography. Video monitoring has been done to check for any parasomnia events. Nocturnal oxyhemoglobin saturations were obtained by finger oximetry. Step-martinez titration with positive airway pressure was utilized to control respiratory events. Raw data of sleep recording has been reviewed and is adequate. RESULTS: Sleep efficiency was decreased to 72.1%. Latency to sleep onset was prolonged to 48.0 minutes.]. Sleep architecture showed stage N1 was short 2.9%, Delta sleep was absent 0%, REM sleep was normal 26.1%. Heart rate was minimum 66 BPM, maximum 74 BPM, average 70 BPM. EMG showed 1.4 periodic limb movements per hour with 0 micriarousals per hour. PAP titration have been done with CPAP up to the pressure 8 cm H2O. The best results were at the pressure 8 cm H2O. Apnea hypopnea index reduced to 1.4. IMPRESSION: 1. Moderate obstructive sleep apnea hypopnea syndrome mostly on controle with PAP treatment. 2. No significant periodic limb movements have been documented. Please see other impressions from consultation. PLAN: 1. The patient will have treatment with positive air pressure equipment with the level of pressure AutoPap 69 cm H2O and should use it every night for the whole night. 2. Watching and losing weight. 3. Sleep hygiene with regular time in bed for at least 8 hours. 4. No driving if feeling any sleepiness. 5. I will see the patient for follow up visit to explain the results of the test, recommendations, check compliance with treatment and make any necessary adjustment related to mask fitting, pressure and humidification. Thank you very much for allowing me to participate in the management of your patient. Sincerely, Cristobal Nur MD, PhD, FAASM Diplomat of [employer] Sleep Medicine Board of [place] [employer] Piece Worker of [facility] cc: Ramy Stock DO
== END 2025-05-21 05:25 | disposition home or self-care (01) ==
LOC: 3 N SLEEP 20:01
PROVIDERS: ATTEND Internal Medicine
DX: G47.33 Obstructive sleep apnea (adult) (pediatric) (principal); Z99.89 Dependence on other enabling machines and devices; Z88.0 Allergy status to penicillin
CPT/HCPCS: 95811